=== PATIENT | male | born 1970 | race Caucasian/White ===

== ENCOUNTER 2016-07-19 09:49 | Emergency (ER) | payer SELFPAY ==
[~2016-07-19 09:49] MED LIST: ALBUTEROL17 GM INH; BENZONATATE PO; DIFLUCAN PO; FLOMAX0.4 M1 PO; IBUPROFEN; IBUPROFEN800 MG PO; LEVAQUIN PO; LORTAB 5-325 M1 EACH PO; MUCINEX COLD L118 ML; NO MEDICATIONS; PERCOCET5/325 PO; PHENERGAN25 MG PO; PREDNISONE PO; VOLTAREN75 MG PO; ZOFRAN PO
== END 2016-07-19 10:44 | disposition home or self-care (01) ==
LOC: CED 09:49
DX: J20.9 Acute bronchitis, unspecified (principal); J30.2 Other seasonal allergic rhinitis
CPT/HCPCS: 99283

== ENCOUNTER 2016-10-02 08:04 | Emergency (ER) | payer OTHER ==
[~2016-10-02] VITALS: Ht 190.5 cm; Wt 86.2 kg
== END 2016-10-02 09:36 | disposition home or self-care (01) ==
LOC: CED 08:04
DX: M54.6 Pain in thoracic spine (principal); M79.1 Myalgia; F17.210 Nicotine dependence, cigarettes, uncomplicated
CPT/HCPCS: 99283